=== PATIENT | female | born 1995 | race Hispanic/Latino ===

== ENCOUNTER 2019-12-13 18:56 | Inpatient (IN) | payer BC, MEDICAID ==
[~2019-12-13] VITALS: Ht 160 cm; Wt 80.3 kg
[2019-12-13] MEDS ORDERED: NALOXONE HCL 0.4 MG/1 ML ML IV PRN (19:15)
[2019-12-13] MEDS ORDERED: LACTATED RINGERS 500 ML 500 ML IV PRN (19:15)
[2019-12-13] MEDS ORDERED: ROPIVACAINE 0.2% 100ML VIAL 100 ML EP PRN (19:15)
[2019-12-13] MEDS ORDERED: EPHEDRINE SULFATE 50 MG/ML AMPULE IVP PRN (19:15)
[2019-12-13 19:40] LABS: APPEARANCE,URINE Clear (CLEAR); BILIRUBIN,URINE Negative (NEGATIVE); COLOR,URINE Yellow (YELLOW); GLUCOSE, URINE (UA) Negative (NEGATIVE); KETONES,URINE Negative (NEGATIVE); LEUKOCYTE ESTERASE ,URINE Trace (NEGATIVE); NITRATE,URINE Negative (NEGATIVE); OCCULT BLOOD,URINE Negative (NEGATIVE); PH,URINE 5.5 (5.0-8.0); PROTEIN,URINE Trace mg/dL (NEGATIVE)
[2019-12-13 19:50] LABS: RBC,URINE 0-1 /HPF (0-1)
[2019-12-13 19:51] LABS: BACTERIA,URINE Few /HPF (None Seen); MUCUS,URINE Few LPF (None Seen); SQUAMOUS EPITHELIAL CELL,UR Few /HPF (0-2)
[2019-12-13 20:00] VITALS: BP 124/72
[2019-12-13] MEDS ORDERED: OXYTOCIN 10 USP UNITS/ML 20 UNIT in LACTATED RINGERS 1000ML 1,000 ML IV SCH (20:00)
[2019-12-13 20:28] LABS: MEAN CORPUSCULAR HEMOGLOBIN 30.6 pg (27.0-33.0); MEAN CORPUSCULAR HGB CONC 34.2 g/dL (32.0-36.0); MEAN CORPUSCULAR VOLUME 89.4 fL (79-99); RED BLOOD CELL COUNT(AUTO) 3.69 MIL/uL (4.00-5.50); RED CELL DISTRIBUTION WIDTH 13.5 % (11.0-15.5); WHITE BLOOD COUNT (AUTO) 8.6 K/uL (4.8-10.8)
[2019-12-13] MEDS: LACTATED RINGERS 1000ML 1,000 ML IV PRN (20:30)
[2019-12-13] MEDS ORDERED: DINOPROSTONE 10 MG VAGINAL SUPP VG SCH (21:00)
[2019-12-13 21:19] LABS: AMPHET/METH SCREEN,URINE NEGATIVE (NEGATIVE); BARBITURATE SCREEN, URINE NEGATIVE (NEGATIVE); BENZODIAZEPINES SCREEN,URINE NEGATIVE (NEGATIVE); CANNABINOID SCREEN,URINE NEGATIVE (NEGATIVE); COCAINE SCREEN,URINE NEGATIVE (NEGATIVE); OPIATE SCREEN,URINE NEGATIVE (NEGATIVE); PHENCYCLIDINE SCREEN,URINE NEGATIVE (NEGATIVE)
[2019-12-14] MEDS ORDERED: OXYTOCIN-LR 20 UNITS/1000 ML 1,000 ML IV ONE (04:22)
[2019-12-14] MEDS ORDERED: OXYTOCIN 10 USP UNITS/ML 20 UNIT in LACTATED RINGERS 1000ML 1,000 ML IV SCH ×2 (05:00→08:00)
[2019-12-14] MEDS: LACTATED RINGERS 1000ML 1,000 ML IV PRN ×3 (05:02→15:43)
[2019-12-14] MEDS: PROMETHAZINE HCL 25 MG/ML 1ML AMPULE IM PRN ×2 (08:37→12:38)
[2019-12-14] MEDS: MEPERIDINE-PF 50 MG/ML SYG IVP PRN ×2 (08:37→12:38)
[2019-12-14] MEDS ORDERED: CEFAZOLIN SODIUM 1 GM VIAL ONE (22:29)
[2019-12-14] MEDS ORDERED: CEFAZOLIN SODIUM 1 GM VIAL IVP PRN (22:30)
[2019-12-14] MEDS ORDERED: LACTATED RINGERS 1000ML 1,000 ML IV SCH (22:30)
[2019-12-14] MEDS ORDERED: DURAMORPH PF1 MG/ML 10ML AMP IV ONE (22:42)
[2019-12-14] MEDS ORDERED: EPINEPHRINE 1 MG/ML AMPULE ONE (22:43)
[2019-12-14] MEDS ORDERED: CEFAZOLIN SODIUM 1 GM VIAL IVP ONE (23:00)
[2019-12-14] MEDS ORDERED: FENTANYL CITRATE PF 50 MCG/1 ML 2ML VIAL ONE (23:07)
[2019-12-14] MEDS ORDERED: MIDAZOLAM HCL 1 MG/ML 2ML VIAL ONE (23:08)
[2019-12-14] MEDS ORDERED: METHYLERGONOVINE MALEATE 0.2 MG/1 ML ML ONE (23:18)
[2019-12-14] MEDS ORDERED: OXYTOCIN-LR 20 UNITS/1000 ML 1,000 ML IV PRN (23:45)
[2019-12-14] MEDS ORDERED: DEXTROSE 5 %-0.45 % NACL 1,000 ML IV PRN (23:45)
[2019-12-14] MEDS ORDERED: MEPERIDINE-PF 75 MG/ML SYG IM PRN (23:45)
[2019-12-14] MEDS ORDERED: PROMETHAZINE HCL 25 MG/ML 1ML AMPULE IM PRN (23:45)
[2019-12-14] MEDS ORDERED: SODIUM CHLORIDE 0.9% 10 ML VIAL IVP PRN (23:45)
[2019-12-15] MEDS ORDERED: MORPHINE SULFATE 2 MG/ML 1ML SYG ONE (00:36)
[2019-12-15 02:45] VITALS: BP 114/58
--- NOTE | 2019-12-15 02:50 | NUR ---
pt. used to smoke marijuana. Last use last May and she was already . Dr. Mcnamara told her to stop marijuana use. Pt. verbalized that the last marijuana use was May 24, 2019. Pt. drinks coffee 3 cups everyday and cut it down to 1 cup a day with this .
[2019-12-15 03:20] VITALS: BP 116/73
[2019-12-15] MEDS ORDERED: PREN-154 PO (04:42)
[2019-12-15 07:04] LABS: HEMATOCRIT 28.5 % (36-48); MEAN CORPUSCULAR HEMOGLOBIN 31.1 pg (27.0-33.0); MEAN CORPUSCULAR VOLUME 91.3 fL (79-99); RED BLOOD CELL COUNT(AUTO) 3.12 MIL/uL (4.00-5.50); RED CELL DISTRIBUTION WIDTH 13.5 % (11.0-15.5); WHITE BLOOD COUNT (AUTO) 18.4 K/uL (4.8-10.8)
[2019-12-15 07:17] LABS: HEPATITIS Bs ANTIGEN SCREEN P Negative (Negative)
[2019-12-15 07:52] VITALS: BP 114/58
[2019-12-15] MEDS ORDERED: BISACODYL 10 MG SUPP.RECT RC PRN (09:45)
[2019-12-15] MEDS ORDERED: ACETAMINOPHEN EXTRA STRENGTH 500 MG TABLET PO PRN (09:45)
[2019-12-15] MEDS ORDERED: LANOLIN 30GM OINTMENT TP PRN (09:45)
[2019-12-15] MEDS ORDERED: DIPH,PERTUSS(ACELL),TET VAC/PF 0.5 ML VIAL IM SCH (09:45)
[2019-12-15] MEDS ORDERED: HYDROCODONE/ACETAMINOPHEN 5/325 MG TAB PO PRN (09:45)
[2019-12-15] MEDS ORDERED: ACETAMINOPHEN-CODEINE 300/30MG TAB PO PRN (09:45)
--- NOTE | 2019-12-15 09:59 | NUR ---
SS consult for history of Marijuana Use SW met with pt. who is alert, oriented, calm and cooperative. Pt. reported that this is her first /delivery and has named BB Eron Nunn. Pt. states that she is employed at [employer] as a [employer]WORK [employer] and resides with spouse/FOB Grey Antony. Pt. denied any history of depression, anxiety or any other mental health issues. Pt. verbalized an understanding and awareness of PPD. Pt. denied any history of domestic, sexual or emotional abuse. Pt. admitted to having used marijuana in May 2019 as she was unaware of and stated that she will not return to using marijuana. Pt. educated on consequences of using marijuana; pt. verbalized an understanding. Pt. denies any use of etoh or tobacco; there are no smokers in the home. All utilities reportedly connected in the home and couple has own transportation. Spouse/family will assist with care of BB post discharge. Benefits in place include Medicaid, WIC and private insurance. Dr. Boss will be transportation officer and carseat in place. Pt. verbalized no SS needs or concerns. Pt. and BB will be discharged home when medically cleared. Addendum: 12/15/19 at 1022 by ROD WILSON Amended: Links added.
[2019-12-15] MEDS ORDERED: OXYTOCIN-LR 20 UNITS/1000 ML 1,000 ML IV SCH (10:00)
[2019-12-15] MEDS: DOCUSATE SODIUM 100 MG CAP PO SCH ×2 (10:29→20:29)
[2019-12-15] MEDS: SIMETHICONE 80 MG TAB.CHEW PO PRN ×2 (10:29→18:11)
[2019-12-15] MEDS: IBUPROFEN 800 MG TAB PO SCH ×2 (10:30→18:12)
[2019-12-15 18:05] VITALS: BP 108/69
--- NOTE | 2019-12-15 19:40 | NUR ---
PM Assessment Received pt cuddling her baby with spouse at the bedside. Routine assessment done, plan of care discuss, made aware possible d/c tomorrow & in agreement. Pt claimed has not have a BM since Wednesday, stated she normally goes everyday. Pt made aware & agreed to try to drink some warm prune juice tonight then in AM. Pt stated she has been ambulating around the unit with minimal discomfort.
[2019-12-15 19:55] VITALS: BP 95/59
[2019-12-16 00:22] VITALS: BP 125/83
[2019-12-16] MEDS: IBUPROFEN 800 MG TAB PO SCH ×2 (02:14→09:43)
[2019-12-16 03:52] VITALS: BP 116/63
[2019-12-16 07:25] VITALS: BP 117/70
[2019-12-16] MEDS: DOCUSATE SODIUM 100 MG CAP PO SCH (09:42)
[2019-12-16] MEDS: SIMETHICONE 80 MG TAB.CHEW PO PRN ×2 (09:42→13:46)
[2019-12-16 11:07] VITALS: BP 110/66
--- NOTE | 2019-12-16 14:40 | NUR ---
DISCHARGE PT LEFT UNIT VIA WHEELCHAIR, WITH BABY IN ARMS, ACCOMPANIED BY FAMILY. DENIED PAIN AND HAD NO COMPLAINTS. BABY STRAPPED IN CAR SEAT. PT AND BABY TRANSPORTED BY PERSONAL VEHICLE.
== END 2019-12-16 15:00 | disposition home or self-care (01) | DRG 788 ==
LOC: LDH 18:58 → WSH 12-15 03:10
PROVIDERS: ADMIT Obstetrics & Gynecology; ATTEND Obstetrics & Gynecology
PROC: 10D00Z1 Extraction of Products of Conception, Low, Open Approach (ICD-10-PCS; principal; 2019-12-14 23:04)
PROC: 3E0234Z Introduction of Serum, Toxoid and Vaccine into Muscle, Percutaneous Approach (ICD-10-PCS; 2019-12-15)
DX: O62.1 Secondary uterine inertia (principal); O77.0 Labor and delivery complicated by meconium in amniotic fluid; O69.1XX0 Labor and delivery complicated by cord around neck, with compression, not applicable or unspecified; O64.0XX0 Obstructed labor due to incomplete rotation of fetal head, not applicable or unspecified; Z3A.39 39 weeks gestation of pregnancy; Z37.0 Single live birth; Z23 Encounter for immunization
CPT/HCPCS: 36415; 80305; 81001; 85027; 86592; 86850; 86900; 86901; 87340; 90715; A4314; G0378; J0171; J0690; J2175; J2210; J2250; J2274; J2550; J2590; J2795; J3010; J7120

== ENCOUNTER 2022-01-07 18:49 | Inpatient (IN) | payer BC, MEDICAID ==
[~2022-01-07] VITALS: Ht 160 cm; Wt 79.8 kg
[~2022-01-07 18:49] MED LIST: PREN-154 PO
[2022-01-07 19:00] VITALS: BP 139/83
[2022-01-07] MEDS ORDERED: CEFAZOLIN SODIUM 1 GM VIAL IVP PRN (19:30)
[2022-01-07] MEDS ORDERED: CALDOLOR 800MG+NS 250ML 250 ML IV PRN ×2 (19:30→22:00)
[2022-01-07 19:41] LABS: MEAN CORPUSCULAR HEMOGLOBIN 28.7 pg (27.0-33.0); MEAN CORPUSCULAR HGB CONC 33.8 g/dL (32.0-36.0); MEAN CORPUSCULAR VOLUME 85.1 fL (79-99); RED BLOOD CELL COUNT(AUTO) 3.76 MIL/uL (4.00-5.50); RED CELL DISTRIBUTION WIDTH 14.3 % (11.0-15.5); WHITE BLOOD COUNT (AUTO) 8.9 K/uL (4.8-10.8)
[2022-01-07] MEDS ORDERED: MORPHINE PF 100MG/10ML AMP IV ONE (19:46)
[2022-01-07] MEDS ORDERED: ONDANSETRON 4MG INJ ONE ×2 (19:47)
[2022-01-07] MEDS: LACTATED RINGERS 1000ML 1,000 ML IV SCH (19:51)
[2022-01-07] MEDS ORDERED: OXYTOCIN 10 UNIT/1ML 10ML VIAL ONE ×2 (19:55→20:34)
[2022-01-07] MEDS ORDERED: OXYTOCIN 10 USP UNITS/ML ONE ×2 (19:57→20:38)
[2022-01-07] MEDS ORDERED: MIDAZOLAM HCL 1 MG/ML 2ML VIAL ONE (20:26)
[2022-01-07] MEDS ORDERED: EPINEPHRINE PF 1MG (1:1,000) 1 MG/ML AMP ONE (20:31)
[2022-01-07] MEDS ORDERED: OXYMETAZOLINE HCL SPRAY 15 ML BOTTLE ONE (20:35)
[2022-01-07] MEDS ORDERED: OXYTOCIN-LR 20 UNITS/1000 ML 1,000 ML IV ONE (20:37)
[2022-01-07] MEDS ORDERED: DEXTROSE 5 %-0.45 % NACL 1,000 ML IV PRN (22:00)
[2022-01-07] MEDS ORDERED: METOCLOPRAMIDE 10 MG/2 ML VIAL IVP PRN (22:00)
[2022-01-07] MEDS ORDERED: 0.9%NACL 10ML VIAL IVP PRN (22:00)
[2022-01-07] MEDS ORDERED: ONDANSETRON 4MG INJ IVP PRN (22:00)
[2022-01-07] MEDS ORDERED: PROCHLORPERAZINE 10MG/2ML INJ IV PRN (22:00)
[2022-01-07] MEDS ORDERED: MEPERIDINE-PF 75 MG/ML SYG IM PRN (22:00)
[2022-01-07] MEDS ORDERED: RACEPINEPHRINE HCL 2.25% 0.5 ML NEB SOLN NEB PRN (22:00)
[2022-01-07] MEDS ORDERED: EPHEDRINE SULFATE 50 MG/ML AMPULE IVP PRN (22:00)
[2022-01-07] MEDS ORDERED: OXYTOCIN-LR 20 UNITS/1000 ML 1,000 ML IV PRN (22:00)
[2022-01-07] MEDS ORDERED: PROMETHAZINE HCL 25 MG/ML 1ML AMPULE IM PRN (22:00)
[2022-01-07] MEDS ORDERED: NALOXONE HCL 0.4 MG/1 ML ML IVP PRN ×2 (22:00)
[2022-01-07] MEDS ORDERED: DiphenhydrAMINE HCL 50 MG/ML VIAL IVP PRN (22:00)
[2022-01-07] MEDS ORDERED: IPRATROPIUM/ALBUTEROL SULFATE 3 ML SOLUTION IH PRN (22:00)
[2022-01-07 22:04] LABS: APPEARANCE,URINE CLEAR (CLEAR); BILIRUBIN,URINE NEGATIVE (NEGATIVE); COLOR,URINE YELLOW (YELLOW); GLUCOSE, URINE (UA) NEGATIVE (NEGATIVE); KETONES,URINE 40 mg/dL (NEGATIVE); LEUKOCYTE ESTERASE ,URINE NEGATIVE Leu/uL (NEGATIVE); NITRATE,URINE NEGATIVE (NEGATIVE); OCCULT BLOOD,URINE NEGATIVE (NEGATIVE); PROTEIN,URINE 30 mg/dL (NEGATIVE); UROBILINOGEN,URINE 0.2 mg/dL (0.2-1.0)
[2022-01-07 22:07] LABS: AMPHET/METH SCREEN,URINE NEGATIVE (NEGATIVE); BARBITURATE SCREEN, URINE NEGATIVE (NEGATIVE)
[2022-01-07 22:08] LABS: BENZODIAZEPINES SCREEN,URINE NEGATIVE (NEGATIVE); CANNABINOID SCREEN,URINE NEGATIVE (NEGATIVE); COCAINE SCREEN,URINE NEGATIVE (NEGATIVE); PHENCYCLIDINE SCREEN,URINE NEGATIVE (NEGATIVE)
[2022-01-07 22:34] LABS: MUCUS,URINE RARE LPF (None Seen); RBC,URINE 0-1 /HPF (0-1); SQUAMOUS EPITHELIAL CELL,UR MOD /HPF (0-2); WBC,URINE 0-1 /HPF (0-1)
[2022-01-07 23:35] VITALS: BP 99/56
[2022-01-08 03:00] VITALS: BP 93/43
[2022-01-08] MEDS: LACTATED RINGERS 1000ML 1,000 ML IV SCH ×2 (03:30→11:30)
[2022-01-08] MEDS: CALDOLOR 800MG+NS 250ML 250 ML IV SCH ×2 (03:56→11:04)
[2022-01-08] MEDS ORDERED: HYDROCODONE/ACETAMINOPHEN 5/325 MG TAB PO PRN (06:30)
[2022-01-08] MEDS ORDERED: ACETAMINOPHEN 500 MG TABLET PO PRN (06:30)
[2022-01-08] MEDS ORDERED: ACETAMINOPHEN WITH CODEINE 1 TAB TAB PO PRN (06:30)
[2022-01-08] MEDS ORDERED: LANOLIN 30GM OINTMENT TP PRN (06:30)
[2022-01-08] MEDS ORDERED: BISACODYL 10 MG SUPP.RECT RC PRN (06:30)
[2022-01-08 06:38] LABS: HEMATOCRIT 27.5 % (36-48); MEAN CORPUSCULAR HEMOGLOBIN 28.5 pg (27.0-33.0); MEAN CORPUSCULAR HGB CONC 33.1 g/dL (32.0-36.0); MEAN CORPUSCULAR VOLUME 86.2 fL (79-99); RED BLOOD CELL COUNT(AUTO) 3.19 MIL/uL (4.00-5.50); WHITE BLOOD COUNT (AUTO) 11.8 K/uL (4.8-10.8)
[2022-01-08 07:30] VITALS: BP 103/60
[2022-01-08] MEDS: DOCUSATE SODIUM 100 MG CAP PO SCH ×2 (08:39→21:03)
[2022-01-08] MEDS: SIMETHICONE 80 MG TAB.CHEW PO PRN ×4 (08:39→21:03)
[2022-01-08 12:00] VITALS: BP 96/52
[2022-01-08 16:00] VITALS: BP 98/56
[2022-01-08] MEDS ORDERED: DIPH,PERTUSS(ACELL),TET VAC/PF 0.5 ML VIAL IM ONE (18:00)
[2022-01-08] MEDS: IBUPROFEN 800 MG TAB PO SCH (18:04)
[2022-01-08 19:21] VITALS: BP 105/59
[2022-01-08 23:33] VITALS: BP 93/56
[2022-01-09] MEDS: IBUPROFEN 800 MG TAB PO SCH ×2 (01:41→09:36)
[2022-01-09 04:03] VITALS: BP 115/71
[2022-01-09 07:15] VITALS: BP 106/60
[2022-01-09] MEDS: DOCUSATE SODIUM 100 MG CAP PO SCH (09:35)
[2022-01-09] MEDS: SIMETHICONE 80 MG TAB.CHEW PO PRN (09:35)
== END 2022-01-09 11:05 | disposition home or self-care (01) | DRG 785 ==
LOC: EDH 18:49 → INTOOBSV 18:50 → LDH 18:50 → OBSVTOIN 18:50 → WSH 23:25
PROVIDERS: ADMIT Obstetrics & Gynecology; ATTEND Obstetrics & Gynecology
PROC: 10D00Z1 Extraction of Products of Conception, Low, Open Approach (ICD-10-PCS; 2022-01-07)
PROC: 0UB70ZZ Excision of Bilateral Fallopian Tubes, Open Approach (ICD-10-PCS; principal; 2022-01-07 19:23)
DX: O34.211 Maternal care for low transverse scar from previous cesarean delivery (principal); Z37.0 Single live birth; Z3A.38 38 weeks gestation of pregnancy; Z30.2 Encounter for sterilization; O77.0 Labor and delivery complicated by meconium in amniotic fluid
CPT/HCPCS: 36415; 59510; 80305; 81001; 85025; 85027; 86592; 86701; 86850; 86900; 86901; 87340; 87390; 87426; 90715; A4344; G0378; J0171; J0690; J1741; J2250; J2274; J2405; J2590; J7120